=== PATIENT | male | born 1940 ===

== ENCOUNTER 2020-06-20 17:02 | Emergency (ER) | payer MEDICARE, BC ==
[2020-06-20] MEDS ORDERED: HYDROmorphone 1 MG/ML Syringe IVPUSH ONE (17:15)
[2020-06-20] MEDS ORDERED: Sodium Chloride 0.9% 1,000 ML IV ONE (17:15)
[2020-06-20 17:48] LABS: PTT,PARTIAL THROMBOPLSTIN TIME 20.3 SEC (22.0-34.0)
[2020-06-20 17:49] LABS: ANION GAP 12.5 mEq/L (7-13); CHLORIDE,CL 102 mmol/L (98-107); SODIUM,NA 137 mmol/L (136-145)
[2020-06-20] MEDS ORDERED: Diphtheria,Pertussis(Acell),Tetanus Vaccine 0.5 ML Syringe IM ONE (17:58)
[2020-06-20 18:08] LABS: CORONAVIRUS COVID-19 NAA NEGATIVE (NEGATIVE)
[2020-06-20] MEDS: Sodium Chloride 0.9% 1,000 ML IV SCH ×2 (18:33→18:51)
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
== END 2020-06-20 19:21 ==
LOC: DL.ED 17:02
DX: T21.31XA Burn of third degree of chest wall, initial encounter (principal); T21.32XA Burn of third degree of abdominal wall, initial encounter; T22.30XA Burn of third degree of shoulder and upper limb, except wrist and hand, unspecified site, initial encounter; T20.112A Burn of first degree of left ear [any part, except ear drum], initial encounter; T20.111A Burn of first degree of right ear [any part, except ear drum], initial encounter; E11.9 Type 2 diabetes mellitus without complications; I10 Essential (primary) hypertension; I25.2 Old myocardial infarction; T31.44 Burns involving 40-49% of body surface with 40-49% third degree burns; Z20.822 Contact with and (suspected) exposure to COVID-19; Z23 Encounter for immunization; X08.8XXA Exposure to other specified smoke, fire and flames, initial encounter
CPT/HCPCS: 0240U; 36415; 80053; 83605; 83735; 84100; 85025; 85610; 85730; 86140; 90471; 90715; 96374; 99284; 99285-25; J1170; J7030

== ENCOUNTER 2021-06-24 21:20 | Emergency (ER) | payer MEDICARE, BC ==
[2021-06-24 22:20] LABS: ANION GAP 17.8 mEq/L (7-13)
[2021-06-24] MEDS ORDERED: cefTRIAXone 1 GM in Sodium Chloride 0.9% 50 ML IV ONE (22:35)
== END 2021-06-24 23:22 | disposition home or self-care (01) ==
LOC: DL.ED 21:20
DX: N39.0 Urinary tract infection, site not specified (principal); E11.9 Type 2 diabetes mellitus without complications; I10 Essential (primary) hypertension; I25.2 Old myocardial infarction; Z79.84 Long term (current) use of oral hypoglycemic drugs; Z79.899 Other long term (current) drug therapy; Z91.041 Radiographic dye allergy status
CPT/HCPCS: 36415; 80053; 81001; 83605; 85025; 87040; 87077; 87086; 87088; 87186; 96365; 99283; 99284; J0696

== ENCOUNTER 2021-08-07 09:38 | Emergency (ER) | payer MEDICARE, BC ==
[2021-08-07] MEDS ORDERED: cefTRIAXone 1 GM, Lidocaine 1% 2.1 ML IM ONE ×2 (10:24)
[2021-08-07] MEDS ORDERED: Phenazopyridine 95 MG Tab PO ONE (10:24)
== END 2021-08-07 10:58 | disposition home or self-care (01) ==
LOC: DL.ED 09:38
DX: N30.01 Acute cystitis with hematuria (principal); I25.2 Old myocardial infarction; I10 Essential (primary) hypertension; E11.9 Type 2 diabetes mellitus without complications; Z90.49 Acquired absence of other specified parts of digestive tract; Z79.899 Other long term (current) drug therapy; Z79.84 Long term (current) use of oral hypoglycemic drugs; Z91.041 Radiographic dye allergy status; Z88.8 Allergy status to other drugs, medicaments and biological substances
CPT/HCPCS: 81001; 87086; 87088; 87186; 96372; 99283; A9270-GY; J0696

== ENCOUNTER 2021-08-07 23:59 | Emergency (ER) | payer MEDICARE, BC ==
[2021-08-08] MEDS ORDERED: Lidocaine 2% Jelly 10 ML Urojet MUCMEM ONE (00:40)
== END 2021-08-08 01:45 | disposition home or self-care (01) ==
LOC: DL.ED 23:59
DX: N39.0 Urinary tract infection, site not specified (principal); N40.1 Benign prostatic hyperplasia with lower urinary tract symptoms; R33.9 Retention of urine, unspecified; E11.65 Type 2 diabetes mellitus with hyperglycemia; I10 Essential (primary) hypertension; I25.2 Old myocardial infarction; F17.210 Nicotine dependence, cigarettes, uncomplicated; Z91.041 Radiographic dye allergy status; Z88.8 Allergy status to other drugs, medicaments and biological substances; Z79.84 Long term (current) use of oral hypoglycemic drugs
CPT/HCPCS: 51702; 82947; 99283; 99284-25

== ENCOUNTER 2021-10-04 14:39 | Emergency (ER) | payer MEDICARE, BC ==
[~2021-10-04 14:39] MED LIST: Sodium Chloride 0.9% 10 ML Syringe FLUSH PRN
[2021-10-04] MEDS ORDERED: Acetaminophen 325 MG Tab PO ONE (15:13)
[2021-10-04] MEDS ORDERED: Sodium Chloride 0.9% 1,000 ML IV ONE (15:14)
[2021-10-04] MEDS ORDERED: Ibuprofen 600 MG Tab PO ONE (15:14)
[2021-10-04 15:28] LABS: ANION GAP 16.7 mEq/L (7-13)
[2021-10-04] MEDS ORDERED: Acetaminophen 325 MG Tab ONE (15:28)
[2021-10-04 15:43] LABS: RESPIRATORY SYNCYTIAL VIR NAA NEGATIVE (NEGATIVE)
[2021-10-04 15:48] LABS: CORONAVIRUS COVID-19 NAA POSITIVE (NEGATIVE)
[2021-10-04] MEDS ORDERED: cefTRIAXone 1 GM in Sodium Chloride 0.9% 50 ML IV ONE (16:03)
== END 2021-10-04 17:45 | disposition home or self-care (01) ==
LOC: DL.ED 14:39
DX: U07.1 COVID-19 (principal); N30.01 Acute cystitis with hematuria; R53.1 Weakness; I10 Essential (primary) hypertension; I25.2 Old myocardial infarction; E11.9 Type 2 diabetes mellitus without complications; Z90.49 Acquired absence of other specified parts of digestive tract; Z91.041 Radiographic dye allergy status; Z88.1 Allergy status to other antibiotic agents; Z79.899 Other long term (current) drug therapy; Z79.84 Long term (current) use of oral hypoglycemic drugs
CPT/HCPCS: 0241U; 36415; 71045; 80053; 81001; 82947; 83605; 84145; 85025; 87040; 87077; 87086; 87088; 87186; 96361; 96365; 99285-25; A9270-GY; J0696; J3490; J7030

== ENCOUNTER 2024-06-02 18:25 | Emergency (ER) | payer MEDICARE, BC ==
[2024-06-02 19:37] LABS: COLOR,URINE YELLOW (YELLOW)
[2024-06-02 19:38] LABS: APPEARANCE,URINE CLOUDY (CLEAR); GLUCOSE,URINE NEGATIVE (NEGATIVE); PH,URINE 8.5 (5.0-9.0); PROTEIN,URINE >=300 (NEGATIVE)
[2024-06-02 19:39] LABS: BILIRUBIN,URINE NEGATIVE (NEGATIVE); KETONES,URINE TRACE (NEGATIVE); LEUKOCYTE ESTERASE,URINE SMALL (NEGATIVE); NITRITE,URINE POSITIVE (NEGATIVE); OCCULT BLOOD,URINE MODERATE (NEGATIVE); UROBILINOGEN,URINE 0.2 mg/dL (0.2-1.0)
[2024-06-02 19:55] LABS: BACTERIA,URINE MANY /HPF (0-FEW/HPF); EPITHELIAL CELLS,URINE FEW /HPF (NOT SEEN); RBC,URINE 30-40 /HPF (0-5); WBC,URINE 40-50 /HPF (0-5/HPF)
[2024-06-02 20:14] LABS: BASOPHILS PERCENT AUTO 0.3 % (0.0-1.0); EOSINOPHILS PERCENT AUTO 0.1 % (1.0-3.0); HEMATOCRIT 32.1 % (40.0-54.0); HEMOGLOBIN 10.5 g/dL (14.0-18.0); LYMPHOCYTES PERCENT AUTO 18.6 % (20.5-50.1); MEAN CORPUSCULAR HEMOGLOBIN 31.4 pg (27.0-34.0); MEAN CORPUSCULAR HGB CONC 32.7 g/dL (33.0-35.0); MEAN CORPUSCULAR VOLUME 96.1 fL (80-100); MONOCYTES PERCENT AUTO 15.1 % (2-8); NEUTROPHILS PERCENT AUTO 65.9 % (42.2-75.2); PLATELET COUNT,PLT 401 10^3/uL (150-450); RED BLOOD CELL COUNT 3.34 10^6/uL (4.6-6.2); WHITE BLOOD CELL COUNT,WBC 7.8 10^3/uL (5.0-10.0)
[2024-06-02 20:43] LABS: ALBUMIN 2.6 g/dL (3.4-5.0); ANION GAP 15.8 mEq/L (7-13); BILIRUBIN TOTAL 0.7 mg/dL (0.2-1.0); BUN/CREATININE RATIO 18.5 (No establ ref range); CALCIUM 8.7 mg/dL (8.5-10.1); CREATININE 1.3 mg/dL (0.70-1.30); EST CRCL DRUG DOSING (CG) 33.92 mL/min; POTASSIUM,K 3.8 mmol/L (3.5-5.1); PROTEIN TOTAL,TP 6.7 g/dL (6.4-8.2)
[2024-06-02 20:46] LABS: A/G RATIO 0.63
[2024-06-02] MEDS: Levofloxacin 500 MG Tab PO ONE (21:01)
== END 2024-06-02 21:09 | disposition home or self-care (01) ==
LOC: DL.ED 18:25
DX: T83.031A Leakage of indwelling urethral catheter, initial encounter (principal); N30.00 Acute cystitis without hematuria; I10 Essential (primary) hypertension; I25.2 Old myocardial infarction; E11.9 Type 2 diabetes mellitus without complications; F17.210 Nicotine dependence, cigarettes, uncomplicated; Z88.8 Allergy status to other drugs, medicaments and biological substances; Z91.041 Radiographic dye allergy status; Z79.899 Other long term (current) drug therapy; Z79.84 Long term (current) use of oral hypoglycemic drugs; Z90.49 Acquired absence of other specified parts of digestive tract
CPT/HCPCS: 36415; 51702; 80053; 81001; 85025; 87086; 87088; 87186; 99283; 99284; A9270

== ENCOUNTER 2024-07-10 14:07 | Emergency (ER) | payer MEDICARE, BC ==
[2024-07-10 14:48] LABS: APPEARANCE,URINE TURBID (CLEAR); BILIRUBIN,URINE SMALL (NEGATIVE); COLOR,URINE YELLOW (YELLOW); GLUCOSE,URINE 100 (NEGATIVE); KETONES,URINE TRACE (NEGATIVE); LEUKOCYTE ESTERASE,URINE LARGE (NEGATIVE); NITRITE,URINE NEGATIVE (NEGATIVE); OCCULT BLOOD,URINE LARGE (NEGATIVE); PROTEIN,URINE >=300 (NEGATIVE); UROBILINOGEN,URINE 0.2 mg/dL (0.2-1.0)
[2024-07-10 14:51] LABS: MUCUS,URINE FEW /LPF (NOT SEEN); WBC,URINE >100 /HPF (0-5/HPF)
[2024-07-10] MEDS: Lidocaine 2% Jelly 10 ML Urojet MUCMEM ONE (14:51)
[2024-07-10 14:52] LABS: CALCIUM OXALATE CRYSTALS,URINE FEW /HPF (NOT SEEN); EPITHELIAL CELLS,URINE RARE /HPF (NOT SEEN)
[2024-07-10 14:53] LABS: RBC,URINE >100 /HPF (0-5)
[2024-07-10 14:54] LABS: BACTERIA,URINE FEW /HPF (0-FEW/HPF)
[2024-07-10] MEDS: cefTRIAXone 1 GM, Lidocaine 1% 2.1 ML IM ONE (15:06)
[2024-07-10] MEDS: Take Home: Ciprofloxacin HCl 500 MG, 6 Tab Pack PO ONE (15:10)
== END 2024-07-10 15:29 | disposition home or self-care (01) ==
LOC: DL.ED 14:07
DX: R33.9 Retention of urine, unspecified (principal); N30.00 Acute cystitis without hematuria; I10 Essential (primary) hypertension; I25.2 Old myocardial infarction; E11.9 Type 2 diabetes mellitus without complications; Z88.8 Allergy status to other drugs, medicaments and biological substances; Z79.84 Long term (current) use of oral hypoglycemic drugs; Z79.899 Other long term (current) drug therapy; Z90.49 Acquired absence of other specified parts of digestive tract
CPT/HCPCS: 51720; 81001; 87086; 87088; 87186; 96372; 99283; A9270; J0696; J2003; 99284